=== PATIENT | female | born 1965 | race Caucasian/White ===

== ENCOUNTER → 2016-06-09 | Outpatient (CLI) | payer BC ==
--- NOTE | 2016-06-09 14:20 | XR ---
EXAMINATION TYPE: XR chest 2V DATE OF EXAM: 06/09/2016 2:08 PM COMPARISON: NONE HISTORY: Cough, pain FINDINGS: The lungs are clear and there is no pneumothorax, pleural effusion, or focal pneumonia. Postsurgica l change right shoulder. Hyperinflation suggests COPD. IMPRESSION: 1. No acute process.
--- NOTE | 2016-06-10 10:39 | MM ---
Reason for exam: screening (asymptomatic). Last mammogram was performed 4 years and 4 months ago. History: Patient is postmenopausal. Family history of breast cancer in maternal aunt and breast cancer in maternal grandmother. Physical Findings: A clinical breast exam by your physician is recommended on an annual basis and results should be correlated with mammographic findings. MG Screening Mammo w CAD Bilateral CC and MLO view(s) were taken. Prior study comparison: February 11, 2012, CAD bilateral diagnostic mammogram. December 19, 2008, left breast digital mammogram. The breast tissue is almost entirely fat. No significant changes when compared with prior studies. ASSESSMENT: Benign, BI-RAD 2 RECOMMENDATION: Routine screening mammogram of both breasts in 1 year.
== END | disposition home or self-care (01) ==
LOC: RADMAMWWP 13:37
PROVIDERS: ATTEND Family Medicine
DX: Z12.31 Encounter for screening mammogram for malignant neoplasm of breast (principal); Z72.0 Tobacco use; Z80.1 Family history of malignant neoplasm of trachea, bronchus and lung; K21.9 Gastro-esophageal reflux disease without esophagitis
CPT/HCPCS: 71020; G0202

== ENCOUNTER → 2016-07-06 | Day surgery (SDC) | payer BC ==
[2016-07-01 09:26] VITALS: BMI 32.6
[~2016-07-06] MED LIST: LACTATED RINGERS 1,000 ML IV SCH; LIDOCAINE 1% 20 ML VIAL (10MG/ML) FOR IV START INTRADERMA ONE; LIDOCAINE 1% INJ 10MG/ML (20 ML MDV) ONE; PROPOFOL 10 MG/ML 20 ML VIAL IV ONE
[2016-07-06 11:21] VITALS: RESP 16; TEMP 97.9
--- NOTE | 2016-07-06 12:35 | P.PCN ---
Date of Procedure: 07/06/16 Procedure(s) Performed: Procedure: 1. Esophagogastroduodenoscopy and biopsy. 2. Total colonoscopy. Preoperative diagnosis: Chronic reflux symptoms and screening for colon neoplasia. Postoperative diagnosis: 1. Sliding hiatal hernia with no obvious esophagitis or complicated reflux disease. 2. Mild antral gastritis. 3. Diverticulosis of the colon with no evidence of acute diverticulitis or strictures. 4. No polyps or cancer. Preparation: HalfLytely prep. Sedation: Was provided by anesthesia. Brief clinical history: The patient is a 50-year-old female who is referred for this evaluation for the above reasons. She has no other alarm symptoms. Her brother had lung cancer but there is no family history of colon cancer. This would be her first upper and lower endoscopy. Procedure: With the patient on her left lateral decubitus position and after informed consent and adequate sedation, I passed the Olympus-GIF 160 video upper endoscope through the cricopharyngeus down the esophagus. GE junction was around 39 cm from the incisors and there was a small sliding hiatal hernia. The esophagus did not show any obvious erosions, ulcers, strictures or Townsend 's esophagus. The endoscope was then passed into the stomach which was insufflated with air and inspected in detail including the retroflex view in the cardia. There was minimal mottling and erythema in the antrum but no ulcers or erosions. Pyloric channel, duodenal bulb, post bulbar area and descending duodenum appeared within normal limits. Because of her symptoms I obtained multiple biopsies from the duodenum in addition to biopsies from the antrum and after gastric then the endoscope was withdrawn and I then proceeded with the colonoscopy. Perianal area did not show any fissures or fistulas. There were no masses felt on digital rectal examination. The Olympus CFQ 160L video colonoscope was then inserted in the rectum in the usual fashion and advanced to the cecum. There were multiple diverticular orifices seen scattered along the length of the bowel including the right side with no evidence of acute diverticulitis or strictures. The mucosa appeared healthy. No polyps or tumors were seen. I retroflexed the endoscope in the rectum before the endoscope was withdrawn. The patient tolerated the procedure well. Plan: The patient was reassured. Discussed dietary measures. Will await biopsy results. I recommended repeat colonoscopy in 10 years. She will follow- up with you as planned.
[2016-07-06 13:01] VITALS: BP 116/70; PULSE 70
== END ==
LOC: ORWHC2ENDO 09:56
DX: Z12.11 Encounter for screening for malignant neoplasm of colon (principal); K44.9 Diaphragmatic hernia without obstruction or gangrene; K29.50 Unspecified chronic gastritis without bleeding; K57.30 Diverticulosis of large intestine without perforation or abscess without bleeding; K21.0 Gastro-esophageal reflux disease with esophagitis; Z79.899 Other long term (current) drug therapy; Z72.0 Tobacco use
CPT/HCPCS: 88305; 88342; 43239; J2001; J2704; G0121; 99153

== ENCOUNTER 2018-01-19 19:01 | Emergency (ER) | payer BC ==
[2018-01-19 20:02] LABS: Appearance,Urine Clear (Clear); Bacteria,Urine Few /hpf; Bilirubin,Urine Negative (Negative); Blood,Urine Large (Negative); Color,Urine Yellow; Glucose,Urine (UA) Negative (Negative); Ketones,Urine Negative (Negative); Leukocyte Esterase,Urine Moderate (Negative); Mucus,Urine Rare /hpf; Nitrite,Urine Negative (Negative); Protein,Urine 1+ (Negative); RBC,Urine >182 /hpf (0-5); Specific Gravity,Urine 1.007 (1.001-1.035); Squamous Epithelial Cell,Urine <1 /hpf (0-4); Urobilinogen,Urine <2.0 mg/dL (<2.0); WBC,Urine 120 /hpf (0-5)
--- NOTE | 2018-01-19 21:34 | ED ---
General Adult HPI - General Chief complaint: Urogenital Stated complaint: poss uti Time Seen by Provider: 01/19/18 21:11 Source: patient, RN notes reviewed Mode of arrival: ambulatory Limitations: no limitations - History of Present Illness Initial comments: 52-year-old female presents to the emergency department for a chief complete of urinary symptoms times one day. Patient states she had a urinary tract infection 2 months ago and this feels similar. Patient states she has burning with urination. She also has urinary urgency and frequency. Patient has been trying to drink water throughout the day to resolve symptoms or chills at home. Patient denies any back pain. Patient is eating and drinking normally. Patient is not immunocompromised. Patient has no other complaints at this time including shortness of breath, chest pain, abdominal pain, nausea or vomiting, headache, or visual changes. - Related Data Home Medications Medication Instructions Recorded Confirmed Ergocalciferol (Vitamin D2) 50,000 unit PO Q30D 06/22/16 01/19/18 [Vitamin D2] Omeprazole [PriLOSEC] 20 mg PO AC-SUPPER 06/22/16 01/19/18 buPROPion [Wellbutrin] 100 mg PO BID 06/22/16 01/19/18 Previous Rx's Medication Instructions Recorded Cephalexin [Keflex] 500 mg PO Q8H 10 Days cap 01/19/18 Allergies Allergy/AdvReac Type Severity Reaction Status Date / Time No Known Allergies Allergy Verified 01/19/18 19:27 Review of Systems ROS Statement: Those systems with pertinent positive or pertinent negative responses have been documented in the HPI. ROS Other: All systems not noted in ROS Statement are negative. Past Medical History Past Medical History: GERD/Reflux History of Any Multi-Drug Resistant Organisms: None Reported Past Surgical History: Section, Hysterectomy, Orthopedic Surgery Additional Past Surgical History / Comment(s): BALBIR ROTATOR CUFF. C-SECT X 5 Past Anesthesia/Blood Transfusion Reactions: No Reported Reaction Past Psychological History: No Psychological Hx Reported Smoking Status: Current every day smoker Past Alcohol Use History: Occasional Past Drug Use History: None Reported - Past Family History Brother(s) Family Medical History: Cancer Additional Family Medical History / Comment(s): LUNG Father Family Medical History: Cancer General Exam Limitations: no limitations General appearance: alert, in no apparent distress Head exam: Present: atraumatic, normocephalic, normal inspection Eye exam: Present: normal appearance. Absent: scleral icterus, conjunctival injection ENT exam: Present: normal exam, mucous membranes moist Neck exam: Present: normal inspection, full ROM. Absent: tenderness, meningismus, lymphadenopathy Respiratory exam: Present: normal lung sounds bilaterally. Absent: respiratory distress, wheezes, rales, rhonchi, stridor Cardiovascular Exam: Present: regular rate, normal rhythm, normal heart sounds. Absent: systolic murmur, diastolic murmur, rubs, gallop, clicks GI/Abdominal exam: Present: soft, normal bowel sounds. Absent: distended, tenderness (No tenderness in the abdomen or suprapubic area), guarding, rebound , rigid Back exam: Absent: CVA tenderness (R), CVA tenderness (L) Neurological exam: Present: alert, oriented X3, CN II-XII intact Psychiatric exam: Present: normal affect, normal mood Skin exam: Present: warm, dry, intact, normal color. Absent: rash Course Vital Signs 01/19/18 19:25 Temperature 98 F Pulse Rate 90 Respiratory 18 Rate Blood Pressure 133/80 O2 Sat by Pulse 98 Oximetry Medical Decision Making - Medical Decision Making 52-year-old female presents for a urinary symptoms consistent with UTI for one day. Patient is afebrile with a temperature of 98. Pulse 98. Vitals stable. No fevers at home. On exam patient is well-appearing. No abdominal tenderness. No CVA tenderness. Urine shows large blood with over 182 white blood cells. Moderate leukocyte esterase with 120 white cells. Culture will be sent. Patient will be treated with Keflex. Patient is immunocompetent. She will follow up with primary care to ensure that blood in the urine results as well as infection. She'll return if she has any worsening symptoms including fevers or chills. - Lab Data Lab Results 01/19/18 Range/Units 19:27 Urine Color Yellow Urine Appearance Clear (Clear) Urine pH 6.0 (5.0-8.0) Ur Specific [place] 1.007 (1.001-1.035) Urine Protein 1+ H (Negative) Urine Glucose (UA) Negative (Negative) Urine Ketones Negative (Negative) Urine Blood Large H (Negative) Urine Nitrite Negative (Negative) Urine Bilirubin Negative (Negative) Urine Urobilinogen <2.0 (<2.0) mg/dL Ur Leukocyte Esterase Moderate H (Negative) Urine RBC >182 H (0-5) /hpf Urine WBC 120 H (0-5) /hpf Ur Squamous Epith Cells <1 (0-4) /hpf Urine Bacteria Few H (None) /hpf Urine Mucus Rare H (None) /hpf Disposition Clinical Impression: Urinary tract infection Disposition: HOME SELF-CARE Condition: Good Instructions: Urinary Tract Infection in Women (ED) Additional Instructions: Please take antibiotic as directed. You may take Azo over the counter for pain relief as well as motrin and tylenol. Return if you have any worsening symptoms , abdominal pain, fevers or chills, or back pain. Follow-up with primary care to ensure that infection and blood and urine results. Prescriptions: Cephalexin [Keflex] 500 mg PO Q8H 10 Days cap Is patient prescribed a controlled substance at d/c from ED?: No Referrals: Jakob Watson MD [Primary Care Provider] - 1-2 days Time of Disposition: 21:31
[2018-01-19 21:43] VITALS: BP 133/75; PULSE 87; RESP 16; TEMP 98
== END 2018-01-19 21:42 | disposition home or self-care (01) ==
LOC: EC 19:01
DX: N39.0 Urinary tract infection, site not specified (principal); K21.9 Gastro-esophageal reflux disease without esophagitis; F17.200 Nicotine dependence, unspecified, uncomplicated; Z90.710 Acquired absence of both cervix and uterus; Z98.890 Other specified postprocedural states; Z79.899 Other long term (current) drug therapy
CPT/HCPCS: 81001; 87086; 99283

== ENCOUNTER 2018-09-28 18:08 | Emergency (ER) | payer BC ==
[2018-09-28] MEDS ORDERED: MORPHINE SULFATE 4 MG/ML SYRINGE IV STA (20:35)
[2018-09-28] MEDS ORDERED: SODIUM CHLORIDE 0.9% 1,000 ML IV STA (20:35)
[2018-09-28] MEDS ORDERED: cefTRIAXone IN SWFI 1,000 MG/10 ML SYRINGE IVP STA (20:36)
[2018-09-28 21:25] LABS: Basophils % (A) 0 %; Eosinophils # (A) 0.4 k/uL (0-0.7); Eosinophils % (A) 3 %; HCT 41.7 % (34.0-46.0); HGB 13.4 gm/dL (11.4-16.0); Lymphocytes # (A) 2.8 k/uL (1.0-4.8); Lymphocytes % (A) 19 %; MCH 30.4 pg (25.0-35.0); MCHC 32.1 g/dL (31.0-37.0); MCV 94.9 fL (80.0-100.0); Mean Platelet Volume 6.6; Monocytes # (A) 0.9 k/uL (0-1.0); Monocytes % (A) 6 %; Neutrophils # (A) 10.3 k/uL (1.3-7.7); Neutrophils % (A) 71 %; Platelet Count 390 k/uL (150-450); RDW 13.7 % (11.5-15.5); WBC 14.6 k/uL (3.8-10.6)
[2018-09-28 21:35] LABS: ALT 14 U/L (9-52); AST 17 U/L (14-36); Albumin 3.6 g/dL (3.5-5.0); Alkaline Phosphatase 83 U/L (38-126); Anion Gap 8 mmol/L; Blood Urea Nitrogen 9 mg/dL (7-17); Calcium 9.4 mg/dL (8.4-10.2); Carbon Dioxide 28 mmol/L (22-30); Chloride 102 mmol/L (98-107); Glucose 128 mg/dL (74-99); Sodium 138 mmol/L (137-145); Total Bilirubin 0.4 mg/dL (0.2-1.3); Total Protein 6.3 g/dL (6.3-8.2)
--- NOTE | 2018-09-28 22:40 | CT ---
EXAM: CT Lumbar Spine With Intravenous Contrast CLINICAL HISTORY: Pain TECHNIQUE: Axial computed tomography images of the lumbar spine with intravenous contrast. CTDI is 44.9 mGy and DLP is 1734 mGy-cm. This CT exam was performed using one or more of the following dose reduction techniques: automated exposure control, adjustment of the mA and/or kV according to patient size, and/or use of iterative reconstruction technique. COMPARISON: No relevant prior studies available. FINDINGS: Vertebrae: No acute fracture. Postoperative changes with fusion at L4- 5 -S1. There is fluid collection posterior to the instrumentation both left and right of midline. The right collection measures approximately 7. 5 cm wide by 6 cm AP by 9 cm craniocaudal. The left-sided collection measures 5.2 cm transverse by 4.5 cm AP by 4.5 cm craniocaudal. The collection on the right appears to have a well-defined margin bordered that may demonstrate some enhancement. There is no gas in the soft tissues. This may represent seroma. Clinical correlation is required Discs/spinal canal/neural foramina: No acute findings. No spinal canal stenosis. Metallic generated streak artifact obscures the canal at L4-L5 and to lesser extent L5 the disc space at L5-S1 IMPRESSION: Bilateral fluid collections adjacent to and posterior to the pedicle screws and rods. This is of uncertain etiology and may represent seromas. Acquired meningocele is felt to be unlikely given the appearance. The potential for abscess collection is not excluded, although there is no gas in the collections. There is obscuration of portions the area interest by metallic generated streak artifact
[2018-09-28 22:53] VITALS: RESP 18
--- NOTE | 2018-09-28 23:13 | ED ---
General Adult HPI - General Chief complaint: Fever Stated complaint: post op infection Time Seen by Provider: 09/28/18 20:29 Source: patient, RN notes reviewed, old records reviewed Mode of arrival: ambulatory Limitations: no limitations - History of Present Illness Initial comments: 53-year-old female patient past medical history of recent lumbar fusion surgery on 09/07/18 presented to ED with approximately 1 week of fevers and chills, erythema cellulitis around right paralumbar incision site. Patient was placed on Keflex by her orthopedic surgeon for this approximately one day ago. Patient denies any other complaints at this time. Patient denies any chest pain shortness of breath abdominal pain, nausea vomiting or diarrhea. Systemic: Pt denies fatigue, myalgia. Pt denies weakness, night sweats, weight loss. Neuro: Pt denies headache, visual disturbances, syncope or pre-syncope. HEENT: Pt denies ocular discharge or irritation, otalgia, rhinorrhea, pharyngitis or notable lymphadenopathy. Cardiopulmonary: Pt denies chest pain, SOB, heart palpitations, dyspnea on exertion. Abdominal/GI: Pt denies abdominal pain, n/v/d. : Pt denies dysuria, burning w/ urination, frequency/urgency. Denies new onset urinary or bowel incontinence. MSK: Pt denies myalgia, loss of strength or function in extremities. Neuro: Pt denies new onset weakness, paresthesias. - Related Data Home Medications Medication Instructions Recorded Confirmed Cephalexin [Keflex] 500 mg PO Q6H 09/28/18 09/28/18 Gabapentin [Neurontin] 300 mg PO TID 09/28/18 09/28/18 Methocarbamol [Robaxin-750] 750 mg PO Q8H 09/28/18 09/28/18 oxyCODONE-APAP 5-325MG [Percocet 1 tab PO Q8H PRN 09/28/18 09/28/18 5-325 mg] Allergies Allergy/AdvReac Type Severity Reaction Status Date / Time No Known Allergies Allergy Verified 09/28/18 20:05 Review of Systems ROS Statement: Those systems with pertinent positive or pertinent negative responses have been documented in the HPI. ROS Other: All systems not noted in ROS Statement are negative. Past Medical History Past Medical History: GERD/Reflux Additional Past Medical History / Comment(s): N/T rt leg, chronic back pain History of Any Multi-Drug Resistant Organisms: None Reported Past Surgical History: Back Surgery, Section, Hysterectomy, Orthopedic Surgery Additional Past Surgical History / Comment(s): BALBIR ROTATOR CUFF. C-SECT X 5 Past Anesthesia/Blood Transfusion Reactions: No Reported Reaction Additional Past Anesthesia/Blood Transfusion Reaction / Comment(s): no hx of problems with prior blood transfusion 34 yrs ago Past Psychological History: No Psychological Hx Reported Smoking Status: Current every day smoker Past Alcohol Use History: None Reported Past Drug Use History: None Reported - Past Family History Brother(s) Family Medical History: Cancer Additional Family Medical History / Comment(s): LUNG Father Family Medical History: Cancer General Exam - General Exam Comments Initial Comments: Constitutional: NAD, AOX3, Pt has pleasant affect. HEENT: NC/AT, trachea midline, neck supple, no lymphadenopathy. Posterior pharynx non erythematous, without exudates. External ears appear normal, without discharge. Mucous membranes moist. Eyes PERRLA, EOM intact. There is no scleral icterus. No pallor noted. Cardiopulmonary: RRR, no murmurs, rubs or gallops, no JVD noted. Lungs CTAB in anterior and posterior boyce. No peripheral edema. Abdominal exam: Abdomen soft and non-distended. Abdomen non-tender to palpation in all 4 quadrants. Bowel sounds active in LLQ. No hepatosplenomegaly. No ecchymosis Neuro: CN II-XII grossly intact. No nuchal rigidity. MSK: Mild cellulitis to right paralumbar incision. Mild amount of clear serous drainage noted. Culture obtained. Mild tender to palpation. No drainable fluid collection noted. No posterior calf tenderness bilaterally, homans sign negative bilaterally. Posterior tibialis and radial pulse +2 bilaterally. Sensation intact in upper and lower extremities. Full active ROM in upper and lower extremities, 5/5 stregnth. Limitations: no limitations Course Vital Signs 09/28/18 09/28/18 09/28/18 18:29 20:00 21:00 Temperature 98.7 F 98.8 F 98.3 F Pulse Rate 101 H 100 93 Respiratory 20 18 18 Rate Blood Pressure 104/52 110/70 107/84 O2 Sat by Pulse 96 94 L 93 L Oximetry 09/28/18 09/28/18 22:30 22:50 Temperature 99.6 F Pulse Rate 96 91 Respiratory 16 18 Rate Blood Pressure 115/70 115/70 O2 Sat by Pulse 98 99 Oximetry Medical Decision Making - Medical Decision Making 53-year-old female patient past medical history of recent lumbar fusion surgery on 09/07/18 presented to ED with approximately 1 week of fevers and chills, erythema cellulitis around right paralumbar incision site. Patient was placed on Keflex by her orthopedic surgeon - Dr. Vásquez for this approximately one day a go. Patient denies any other complaints at this time. Patient denies any chest pain shortness of breath abdominal pain, nausea vomiting or diarrhea. Pt VSS, afebrile. Physical exam displayed: Mild cellulitis to right paralumbar incision. Mild amount of clear serous drainage noted. Culture obtained. Mild tender to palpation. No drainable fluid collection noted. Laboratory investigations revea led mild cytosis of 14.6. CMP non-impressive. Lactic acid 1.0. CT lumbar spine with contrast displayed bilateral fluid collection adjacent to and posterior to the pedicle screws and rods, may represent seromas, unable to exclude abscess. Patient administered 1 g Rocephin ED. Cultures were obtained. Patient will be transferred to [facility] for further evaluation. Accepting physician Dr. Zhang. Case discussed with Dr. Hernandez. - Lab Data Result diagrams: 09/28/18 21:01 09/28/18 21:01 Lab Results 09/28/18 09/28/18 09/28/18 Range/Units 21:01 21:01 21:01 WBC 14.6 H (3.8-10.6) k/uL RBC 4.40 (3.80-5.40) m/uL Hgb 13.4 (11.4-16.0) gm/dL Hct 41.7 (34.0-46.0) % MCV 94.9 (80.0-100.0) fL MCH 30.4 (25.0-35.0) pg MCHC 32.1 (31.0-37.0) g/dL RDW 13.7 (11.5-15.5) % Plt Count 390 (150-450) k/uL Neutrophils % 71 % Lymphocytes % 19 % Monocytes % 6 % Eosinophils % 3 % Basophils % 0 % Neutrophils # 10.3 H (1.3-7.7) k/uL Lymphocytes # 2.8 (1.0-4.8) k/uL Monocytes # 0.9 (0-1.0) k/uL Eosinophils # 0.4 (0-0.7) k/uL Basophils # 0.0 (0-0.2) k/uL Sodium 138 (137-145) mmol/L Potassium 4.0 (3.5-5.1) mmol/L Chloride 102 (98-107) mmol/L Carbon Dioxide 28 (22-30) mmol/L Anion Gap 8 mmol/L BUN 9 (7-17) mg/dL Creatinine 0.52 (0.52-1.04) mg/dL Est GFR (CKD-EPI)AfAm >90 (>60 ml/min/1.73 sqM) Est GFR (CKD-EPI)NonAf >90 (>60 ml/min/1.73 sqM) Glucose 128 H (74-99) mg/dL Plasma Lactic Acid Luis 1.0 (0.7-2.0) mmol/L Calcium 9.4 (8.4-10.2) mg/dL Total Bilirubin 0.4 (0.2-1.3) mg/dL AST 17 (14-36) U/L ALT 14 (9-52) U/L Alkaline Phosphatase 83 (38-126) U/L Total Protein 6.3 (6.3-8.2) g/dL Albumin 3.6 (3.5-5.0) g/dL Disposition Clinical Impression: Post-operative infection Disposition: OTHER INSTITUTION NOT DEFINED Condition: Serious Referrals: Jakob Watson MD [Primary Care Provider] - 1-2 days - Out of Hospital Transfer - Req. Specs Out of Hospital Transfer - Requested Specifics: Other Emergency Center
[2018-09-29] MEDS ORDERED: ACETAMINOPHEN TAB 325 MG TAB PO STA (00:17)
[2018-09-29 00:47] VITALS: BP 113/64; PULSE 82; TEMP 100.1
[2018-09-29] MEDS ORDERED: MORPHINE SULFATE 4 MG/ML SYRINGE IVP STA (00:50)
== END 2018-09-29 00:57 | disposition other institution (70) ==
LOC: EC 18:08
DX: T81.40XA Infection following a procedure, unspecified, initial encounter (principal); D72.829 Elevated white blood cell count, unspecified; F17.200 Nicotine dependence, unspecified, uncomplicated; Z98.1 Arthrodesis status; Z79.899 Other long term (current) drug therapy
CPT/HCPCS: 36415; 80053; 83605; 85025; 87040; 87070; 87205; 72132; 99285; 96374; 96375; 96376; 96361 ×3; J2270; J0696; Q9967; 87077; 87186

== ENCOUNTER 2019-05-01 17:35 | Emergency (ER) | payer BC ==
[2019-05-01 17:43] VITALS: TEMP 97.9
[2019-05-01] MEDS ORDERED: IBUPROFEN 600 MG TAB PO STA (18:11)
--- NOTE | 2019-05-01 19:26 | XR ---
PROCEDURE: XR sacrum coccyx - 3V DATE AND TIME: 05/01/2019 6:24 PM CLINICAL INDICATION: PHH; pain, fall TECHNIQUE: Department protocol COMPARISON: None FINDINGS: Orthopedic hardware appears intact. There is no fracture or malalignment. The soft tissues are unremarkable. IMPRESSION: NO ACUTE PROCESS.
--- NOTE | 2019-05-01 19:35 | ED ---
Fall HPI - General Chief Complaint: Fall Stated Complaint: slip & fall Time Seen by Provider: 05/01/19 17:44 Source: patient Mode of arrival: ambulatory - History of Present Illness Initial Comments: Patient is a 53-year-old female presenting to emergency Department with complaints of tailbone pain after slipping and falling on ice just prior to arrival. Patient states she went to the car wash and was stepping out of her truck when she slipped on ice and fell straight onto her tailbone. Patient states she did hit the back of her head just slightly on the cement when she f ell. Patient denies a headache at this time. She denies loss consciousness, nausea, vomiting. Patient states her head is not sore to the touch. Patient's main concern is her tailbone pain. Patient had recent lumbar surgery approximately one year ago. Patient has no other complaints from this fall. Upon arrival to the ER, her vital signs are stable. - Related Data Home Medications Medication Instructions Recorded Confirmed Cephalexin [Keflex] 500 mg PO Q6H 09/28/18 09/28/18 Gabapentin [Neurontin] 300 mg PO TID 09/28/18 09/28/18 Methocarbamol [Robaxin-750] 750 mg PO Q8H 09/28/18 09/28/18 oxyCODONE-APAP 5-325MG [Percocet 1 tab PO Q8H PRN 09/28/18 09/28/18 5-325 mg] Allergies Allergy/AdvReac Type Severity Reaction Status Date / Time No Known Allergies Allergy Verified 05/01/19 17:39 Review of Systems ROS Statement: Those systems with pertinent positive or pertinent negative responses have been documented in the HPI. ROS Other: All systems not noted in ROS Statement are negative. Past Medical History Past Medical History: GERD/Reflux Additional Past Medical History / Comment(s): N/T rt leg, chronic back pain History of Any Multi-Drug Resistant Organisms: None Reported Past Surgical History: Back Surgery, Section, Hysterectomy, Orthopedic Surgery Additional Past Surgical History / Comment(s): BALBIR ROTATOR CUFF. C-SECT X 5 Past Anesthesia/Blood Transfusion Reactions: No Reported Reaction Additional Past Anesthesia/Blood Transfusion Reaction / Comment(s): no hx of problems with prior blood transfusion 34 yrs ago Past Psychological History: No Psychological Hx Reported Smoking Status: Current every day smoker Past Alcohol Use History: None Reported Past Drug Use History: None Reported - Past Family History Brother(s) Family Medical History: Cancer Additional Family Medical History / Comment(s): LUNG Father Family Medical History: Cancer General Exam - General Exam Comments Initial Comments: GENERAL: Well-appearing, well-nourished and in no acute distress. HEAD: Atraumatic, normocephalic. Nontender to the touch. EYES: Pupils equal round and reactive to light, extraocular movements intact, sclera anicteric, conjunctiva are normal. ENT: TMs normal, nares patent, oropharynx clear without exudates. Moist mucous membranes. NECK: Normal range of motion, supple without lymphadenopathy or JVD. LUNGS: Breath sounds clear to auscultation bilaterally and equal. No wheezes rales or rhonchi. HEART: Regular rate and rhythm without murmurs, rubs or gallops. ABDOMEN: Soft, nontender, normoactive bowel sounds. No guarding, no rebound. No masses appreciated. : Deferred EXTREMITIES: Normal range of motion, no pitting or edema. No clubbing or cyanosis. Tender to palpation of the sacrum and coccyx area. NEUROLOGICAL: Cranial nerves II through XII grossly intact. Normal speech, normal gait. PSYCH: Normal mood, normal affect. SKIN: Warm, Dry, normal turgor, no rashes or lesions noted. Limitations: no limitations Course Vital Signs 05/01/19 05/01/19 17:39 19:42 Temperature 97.9 F Pulse Rate 79 80 Respiratory 18 19 Rate Blood Pressure 133/82 130/81 O2 Sat by Pulse 97 98 Oximetry Medical Decision Making - Medical Decision Making Patient is a 53-year-old female presenting after slipping and falling on the ice today. Patient's main concern was her tailbone pain as she had recent lumbar surgery. X-rays reveal no acute fractures dislocations of her sacrum or coccyx bones. Hardware looks intact and aligned. Patient was given Motrin for symptom relief. She is stable for discharge at this time and she is in agreement with this plan of care. Patient will follow up with PCP if symptoms persist. Return parameters were discussed with the patient she verbalized understanding. Disposition Clinical Impression: Fall, Contusion of coccyx Disposition: HOME SELF-CARE Condition: Stable Instructions (If sedation given, give patient instructions): Contusion in Adults (ED) Additional Instructions: Please return to the Emergency Department if symptoms worsen or any other concerns. Continue with Motrin as needed for pain relief. May use heat and/or ice the area as well. Follow-up with PCP if symptoms persist. Is patient prescribed a controlled substance at d/c from ED?: No Referrals: None,Stated [Primary Care Provider] - 1-2 days
[2019-05-01 19:44] VITALS: BP 130/81; PULSE 80; RESP 19
== END 2019-05-01 19:44 | disposition home or self-care (01) ==
LOC: EC 17:35
DX: S30.0XXA Contusion of lower back and pelvis, initial encounter (principal); F17.200 Nicotine dependence, unspecified, uncomplicated; Z79.899 Other long term (current) drug therapy; Z98.890 Other specified postprocedural states; W00.0XXA Fall on same level due to ice and snow, initial encounter
CPT/HCPCS: 72220; 99283

== ENCOUNTER → 2019-10-17 | Outpatient (CLI) | payer BC ==
--- NOTE | 2019-10-17 12:29 | MR ---
EXAMINATION TYPE: MR kidney wo/w con DATE OF EXAM: 10/17/2019 COMPARISON: CT lumbar spine September 28, 2018 HISTORY: Complex left renal cyst 1.9 cm on left per order. History of back surgery with mass left kid dao per patient. CONTRAST: Standard multiplanar, multisequence MRI departmental protocol utilizing 9 mL intravenous Gadavist flora olinium contrast. FINDINGS: Kidneys: Kidneys are symmetric and within normal limits in size. There are a few roughly subcentimeter thin-walled cysts scattered throughout the right kidney, for re ference there is a 11 x 7 mm thin-walled cyst anteriorly lower pole level axial image 14. No hydronep hrosis or concerning solid renal mass. 5 mm nonenhancing thin-walled cyst upper pole level anteriorly image [address] axial image 51 for reference. Left kidney shows slightly lobulated thin-walled cysts with a few thin septa axial image 25 series 60 1 and coronal series 301 image 30. This lesion measures 2.1 cm transversely by 1.7 cm AP diameter by 2.4 cm craniocaudal diameter. Dynamic postcontrast images show no suspicious thickened septa or nodul ar enhancement. Lesion likely corresponds to CT axial image 42. Bosniak type II lesion. Remainder lef t kidney shows no concerning solid or cystic renal mass. No left-sided hydronephrosis. Other: There is artifact from surgical change L4-S1 level. Lung bases are clear. Occasional tiny thin -walled subcentimeter cyst anterior in the liver is present. The spleen and both adrenal glands are n ormal in size. Pancreas is within normal limits. No suspicious small or large bowel dilatation. Few d iverticula in the left colon are present. Incidental normal-appearing appendix seen best coronal imag e 24. IMPRESSION: Confirmation of Bosniak type II 2.4 cm cystic lesion left kidney. No significant change i n size from lumbar spine CT September 28, 2018.
== END | disposition home or self-care (01) ==
LOC: RADMRIMAIN 11:18
PROVIDERS: ATTEND Urology
DX: N28.1 Cyst of kidney, acquired (principal)
CPT/HCPCS: 74183; A9585